=== PATIENT | male | born 1980 | race Two or more races ===

== ENCOUNTER 2018-09-23 23:12 | Emergency (ER) | payer SELFPAY ==
[~2018-09-23] VITALS: Ht 175.3 cm; Wt 66.0 kg
[2018-09-23 23:19] VITALS: BP 113/72
--- NOTE | 2018-09-23 23:45 | NUR ---
no answer when called from [facility]
--- NOTE | 2018-09-24 00:15 | NUR ---
no answer when called for room, security notes pt was at coffee cart earlier going through items
--- NOTE | 2018-09-24 00:35 | NUR ---
no answer pt not in lobby, 3 rd call
== END 2018-09-24 00:37 | disposition left against medical advice (07) ==
LOC: ED 09-24 00:31
DX: M79.672 Pain in left foot (principal); M79.671 Pain in right foot; Z72.9 Problem related to lifestyle, unspecified
CPT/HCPCS: 99281